=== PATIENT | female | born 1985 | race Caucasian/White ===

== ENCOUNTER 2017-07-03 00:03 | Emergency (ER) | payer MEDICAID ==
[~2017-07-03] VITALS: Ht 154.9 cm; Wt 63.5 kg
[~2017-07-03 00:03] MED LIST: BC PILLS
[2017-07-03 00:14] VITALS: BP_SYST 128
[2017-07-03] MEDS ORDERED: NACL 0.9% 1,000 ML IV ONE (00:19)
[2017-07-03] MEDS ORDERED: KETOROLAC TROMETHAMINE 30 MG VIAL IVP ONE (00:30)
[2017-07-03] MEDS ORDERED: ASPIRIN 325 MG TABLET PO ONE (00:30)
[2017-07-03 00:46] LABS: BILIRUBIN,URINE NEGATIVE (NEGATIVE); BLOOD, URINE TRACE (NEGATIVE); CLARITY/URINE SL CLOUDY (CLEAR); COLOR,URINE YELLOW (YELLOW); GLUCOSE,URINE NEGATIVE (NEGATIVE); KETONES,URINE NEGATIVE (NEGATIVE); LEUKOCYTE ESTERASE ,URINE 3+ (NEGATIVE); NITRITE, URINE NEGATIVE (NEGATIVE); PROTEIN URINE NEGATIVE (NEGATIVE); UROBILINOGEN,URINE 0.2 (0.2-1.0)
[2017-07-03 00:47] LABS: BASOPHILS % (AUTO) 0.3 % (0.0-2.0); EOSINOPHILS # (AUTO) 0.2 K/uL (0.0-0.4); EOSINOPHILS % (AUTO) 1.5 % (0.0-4.0); HEMATOCRIT 41.2 % (36-48); HEMOGLOBIN 13.6 g/dL (12.0-16.0); LYMPHOCYTES # (AUTO) 1.9 K/uL (1.0-5.5); LYMPHOCYTES % (AUTO) 16.3 % (20.5-51.5); MEAN CORPUSCULAR HEMOGLOBIN 27 pg (27-31); MEAN CORPUSCULAR HGB CONC 33 % (32-36); MEAN CORPUSCULAR VOLUME 82 fL (79.0-98.0); MONOCYTES # (AUTO) 0.6 K/uL (0.0-1.0); MONOCYTES % (AUTO) 5.3 % (1.7-9.3); NEUTROPHILS # (AUTO) 9.1 K/uL (1.8-7.7); NEUTROPHILS % (AUTO) 76.6 % (40.0-70.0); PLATELET COUNT (AUTO) 301 K/uL (130-430); RED CELL DISTRIBUTION WIDTH 14.6 % (9.0-15.0); WHITE BLOOD COUNT (AUTO) 11.8 K/uL (4.8-10.8)
[2017-07-03 00:52] LABS: BACTERIA,URINE MODERATE /HPF (None Seen); WBC,URINE 20-50 /HPF (0-3)
[2017-07-03 00:55] LABS: CALCIUM 9.5 mg/dL (8.4-11.0); CREATININE 0.74 mg/dL (0.55-1.30); POTASSIUM 3.5 mmol/L (3.5-5.1)
[2017-07-03 00:59] LABS: INR 0.9 (0.8-1.2); PROTHROMBIN TIME 9.4 SECS (9.5-12.5)
[2017-07-03 01:06] LABS: ALBUMIN 4.3 g/dL (3.4-4.8); TOTAL BILIRUBIN 0.5 mg/dL (0.0-1.0)
[2017-07-03 02:00] VITALS: BP_SYST 133
== END 2017-07-03 02:00 | disposition home or self-care (01) ==
LOC: SED 00:03
DX: S46.911A Strain of unspecified muscle, fascia and tendon at shoulder and upper arm level, right arm, initial encounter (principal); M54.10 Radiculopathy, site unspecified; N39.0 Urinary tract infection, site not specified; X58.XXXA Exposure to other specified factors, initial encounter; Y93.89 Activity, other specified; Y92.89 Other specified places as the place of occurrence of the external cause; Y99.8 Other external cause status
CPT/HCPCS: 36415; 71045; 80053; 81000; 82150; 82550; 83690; 84484; 85025; 85610; 85730; 87086; 93005; 96361; 96374; 99285; J1885; J7030

== ENCOUNTER 2021-07-05 18:10 | Emergency (ER) | payer MEDICAID ==
[~2021-07-05] VITALS: Ht 154.9 cm; Wt 57.2 kg
[2021-07-05 18:10] VITALS: BP_SYST 106
[2021-07-05] MEDS ORDERED: IBUPROFEN 600 MG TABLET PO ONE (19:00)
[2021-07-05] MEDS ORDERED: IBUP-1969 PO (19:47)
[2021-07-05] MEDS ORDERED: HYDR-3917 PO (19:47)
[2021-07-05 20:22] VITALS: BP_SYST 116
== END 2021-07-05 19:59 | disposition home or self-care (01) ==
LOC: SED 18:10
DX: S92.351A Displaced fracture of fifth metatarsal bone, right foot, initial encounter for closed fracture (principal); X50.1XXA Overexertion from prolonged static or awkward postures, initial encounter; Y93.89 Activity, other specified; Y92.89 Other specified places as the place of occurrence of the external cause; Y99.8 Other external cause status
CPT/HCPCS: 99283

== ENCOUNTER 2022-04-24 13:12 | Emergency (ER) | payer MEDICAID ==
[~2022-04-24] VITALS: Ht 154.9 cm; Wt 57.6 kg
[~2022-04-24 13:12] MED LIST changes: +HYDR-3917 PO; +IBUP-1969 PO
[2022-04-24 13:19] VITALS: BP_SYST 129
--- NOTE | 2022-04-24 13:30 | NUR ---
PT BIB SELF AWAKE AND ALERT, AOX4. NO SOB OR DISTRESS. PT C/O PAIN TO TO RLQ, MIGRATING TO MID ABDOMINAL. PAIN STARTED LAST NIGHT IN THE SHOWER AND CONTINUED THIS MORNING.
--- NOTE | 2022-04-24 13:35 | NUR ---
MD DR PHAN AT BEDSIDE
[2022-04-24 14:19] LABS: BASOPHILS % (AUTO) 0.4 % (0.0-2.0); EOSINOPHILS # (AUTO) 0.2 K/uL (0.0-0.4); EOSINOPHILS % (AUTO) 1.9 % (0.0-4.0); HEMATOCRIT 36.4 % (36-48); HEMOGLOBIN 11.9 g/dL (12.0-16.0); LYMPHOCYTES # (AUTO) 1.8 K/uL (1.0-5.5); LYMPHOCYTES % (AUTO) 19.9 % (20.5-51.5); MEAN CORPUSCULAR HEMOGLOBIN 27 pg (27-31); MEAN CORPUSCULAR HGB CONC 33 % (32-36); MEAN CORPUSCULAR VOLUME 83 fL (79.0-98.0); MONOCYTES # (AUTO) 0.6 K/uL (0.0-1.0); MONOCYTES % (AUTO) 6.6 % (1.7-9.3); NEUTROPHILS # (AUTO) 6.6 K/uL (1.8-7.7); NEUTROPHILS % (AUTO) 71.2 % (40.0-70.0); PLATELET COUNT (AUTO) 311 K/uL (130-430); RED BLOOD CELL COUNT(AUTO) 4.38 MIL/uL (4.2-6.2); RED CELL DISTRIBUTION WIDTH 14.8 % (9.0-15.0); WHITE BLOOD COUNT (AUTO) 9.3 K/uL (4.8-10.8)
[2022-04-24 14:35] LABS: CALCIUM 8.7 mg/dL (8.4-11.0); CREATININE 0.51 mg/dL (0.55-1.30)
[2022-04-24 14:39] LABS: ALBUMIN 3.2 g/dL (3.4-4.8); TOTAL BILIRUBIN 0.3 mg/dL (0.0-1.0)
[2022-04-24] MEDS ORDERED: OMEP20CA15 PO (15:18)
[2022-04-24] MEDS ORDERED: HYDR-3917 PO (15:18)
[2022-04-24 15:51] VITALS: BP_SYST 126
--- NOTE | 2022-04-24 15:53 | NUR ---
Patient given written and verbal discharge instructions and verbalizes understanding. ER MD DR HARTMANN discussed with patient the results and treatment provided. Patient in stable condition. ID arm band removed. Rx of NORCO AND OMERRAZOLE given. Patient educated on pain management and to follow up with PMD. Pain Scale 5/10. Opportunity for questions provided and answered. Medication side effect fact sheet provided.
[2022-04-24] MEDS ORDERED: KETAMINE HCL 500 MG/10 ML VIAL ONE (17:01)
== END 2022-04-24 15:51 | disposition home or self-care (01) ==
LOC: SED 13:12
DX: R10.11 Right upper quadrant pain (principal); R10.13 Epigastric pain; R11.0 Nausea; Z79.899 Other long term (current) drug therapy
CPT/HCPCS: 36415; 76700-TC; 80053; 83690; 85025; 99284

== ENCOUNTER 2023-11-04 22:08 | Emergency (ER) | payer MEDICAID ==
[~2023-11-04] VITALS: Ht 154.9 cm; Wt 59.9 kg
[~2023-11-04 22:08] MED LIST changes: +OMEP20CA15 PO
[2023-11-04 22:32] VITALS: BP_SYST 129; PULSE 75; RESP 18; TEMP 98; O2SAT 98
[2023-11-04 23:03] LABS: BILIRUBIN,URINE NEGATIVE (NEGATIVE); BLOOD, URINE NEGATIVE (NEGATIVE); COLOR,URINE YELLOW (YELLOW); GLUCOSE,URINE NEGATIVE (NEGATIVE); KETONES,URINE NEGATIVE (NEGATIVE); LEUKOCYTE ESTERASE ,URINE NEGATIVE (NEGATIVE); NITRITE, URINE NEGATIVE (NEGATIVE); PROTEIN URINE NEGATIVE (NEGATIVE); UROBILINOGEN,URINE 0.2 (0.2-1.0)
[2023-11-04 23:07] LABS: BASOPHILS % (AUTO) 0.5 % (0.0-2.0); EOSINOPHILS # (AUTO) 0.2 K/uL (0.0-0.4); EOSINOPHILS % (AUTO) 3.4 % (0.0-4.0); HEMATOCRIT 37.4 % (36-48); HEMOGLOBIN 12.8 g/dL (12.0-16.0); LYMPHOCYTES % (AUTO) 33.7 % (20.5-51.5); MEAN CORPUSCULAR HEMOGLOBIN 29 pg (27-31); MEAN CORPUSCULAR HGB CONC 34 % (32-36); MEAN CORPUSCULAR VOLUME 83 fL (79.0-98.0); MONOCYTES # (AUTO) 0.5 K/uL (0.0-1.0); MONOCYTES % (AUTO) 8.5 % (1.7-9.3); NEUTROPHILS # (AUTO) 3.2 K/uL (1.8-7.7); NEUTROPHILS % (AUTO) 53.9 % (40.0-70.0); PLATELET COUNT (AUTO) 283 K/uL (130-430); RED CELL DISTRIBUTION WIDTH 15.1 % (9.0-15.0)
[2023-11-04 23:42] LABS: CLARITY/URINE CLEAR (CLEAR)
[2023-11-04 23:45] LABS: ALBUMIN 3.8 g/dL (3.4-4.8); BILIRUBIN,DIRECT 0.1 mg/dL (0.0-0.3); CALCIUM 8.7 mg/dL (8.4-11.0); CREATININE 0.98 mg/dL (0.55-1.30); POTASSIUM 3.9 mmol/L (3.5-5.1); TOTAL BILIRUBIN 0.3 mg/dL (0.0-1.0); TOTAL PROTEIN, SERUM 7.4 g/dL (6.4-8.3)
[2023-11-05] MEDS: MAG HYDROX/AL HYDROX/SIMETH 30 ML, DICYCLOMINE HCL 20 MG, LIDOCAINE VISCOUS 2% 15ML (PO... PO ONE (01:03)
[2023-11-05] MEDS ORDERED: DICY-14 PO (03:03)
[2023-11-05 03:08] VITALS: BP_SYST 129; PULSE 75; RESP 18; TEMP 98; O2SAT 98
== END 2023-11-05 03:08 | disposition home or self-care (01) ==
LOC: SED 22:08
DX: K52.89 Other specified noninfective gastroenteritis and colitis (principal); K64.8 Other hemorrhoids; Z79.899 Other long term (current) drug therapy; Z79.2 Long term (current) use of antibiotics
CPT/HCPCS: 36415; 80048; 80076; 81001; 81003; 81025; 83690; 85025; 99284; J2001